=== PATIENT | female | born 1945 | race Caucasian/White ===

== ENCOUNTER 2018-03-14 08:00 | Outpatient (CLI) | payer MEDICARE | END 2018-03-14 09:00 | disposition home or self-care (01) | LOC: D.MAMMO 08:00 | DX: Z12.31 Encounter for screening mammogram for malignant neoplasm of breast (principal) ==

== ENCOUNTER → 2019-11-07 18:54 | Outpatient (CLI) | payer MEDICARE | END | disposition home or self-care (01) | LOC: D.MAMMO 14:30 | PROVIDERS: ATTEND Internal Medicine | DX: Z12.31 Encounter for screening mammogram for malignant neoplasm of breast (principal) ==